=== PATIENT | female | born 1960 | race Hispanic/Latino ===

== ENCOUNTER 2017-07-18 15:14 | Outpatient (CLI) | payer OTHER ==
--- NOTE | 2017-07-18 16:56 | XRay Report ---
XRAY BILATERAL KNEE THREE VIEWS EACH: 07/18/17 15:14:00 CLINICAL: Bilateral knee pain. FINDINGS: Right: Moderate osteopenia. No fracture or dislocation. Mild narrowing of the medial joint space and moderate narrowing of the lateral joint space with small osteophytes. Small patellar osteophytes. The patella is relatively high but is not dislocated. No joint effusion. Normal soft tissues. Left: Moderate osteopenia. Mild narrowing of both medial and lateral joint spaces. No fracture or dislocation. Patellofemoral osteophytes and a relatively high riding patella. No patellar dislocation. Normal soft tissues. IMPRESSION: Mild bilateral osteoarthritis. Bilateral patella ruben.
== END 2017-07-18 15:15 | disposition home or self-care (01) ==
LOC: SPVIMAG 15:14
PROVIDERS: ATTEND Orthopaedic Surgery Sports Medicine
DX: M17.0 Bilateral primary osteoarthritis of knee (principal); M85.861 Other specified disorders of bone density and structure, right lower leg; M85.862 Other specified disorders of bone density and structure, left lower leg